=== PATIENT | male | born 1965 | race Caucasian/White ===

== ENCOUNTER 2020-01-21 11:55 | Inpatient (IN) | payer OTHER ==
[~2020-01-21] VITALS: Ht 188 cm; Wt 121.1 kg
--- NOTE | 2020-01-21 12:00 | NUR ---
AAOX3, came to ER c/o ON/OFF non radiating midsternal chest pain x 2 weeks. RR is even and unlabored with NAD noted. Skin is warm and dry. Placed on the monitor and hospital gown. Dr Morley at BS for eval.
--- NOTE | 2020-01-21 12:10 | NUR ---
PT CAME TO THE ED C/O INTERMITTENT AND PRESSURE-LIKE CHEST PAIN X 2 WEEKS 10/06 PS. PT AAOX4, VSS, RESPIRATIONS EVEN AND UNLABORED ON RA W/ NAD NOTED. PT CONNECTED TO THE HANDBAG FRAMER AND POX
--- NOTE | 2020-01-21 12:13 | NUR ---
EKG AT BEDSIDE
--- NOTE | 2020-01-21 12:13 | NUR ---
BLOOD COLLECTED AND SENT TO LAB
[2020-01-21 12:37] LABS: BASOPHILS # (AUTO) 0.1 /CMM (0.0-0.2); BASOPHILS % (AUTO) 0.8 % (0.0-2.0); HEMATOCRIT 46 % (39-51); HEMOGLOBIN 15.5 g/dL (13.5-17.5); LYMPHOCYTES # (AUTO) 2.4 /CMM (0.8-4.8); LYMPHOCYTES % (AUTO) 27.7 % (20.0-44.0); MEAN CORPUSCULAR HGB CONC 33 g/dl (31.0-36.0); MEAN CORPUSCULAR VOLUME 88 fL (80-96); MONOCYTES # (AUTO) 0.8 /CMM (0.1-1.30); MONOCYTES % (AUTO) 9.5 % (2.0-12.0); NEUTROPHILS # (AUTO) 5.3 /CMM (1.8-8.9); PLATELET COUNT (AUTO) 221 /CMM (150-450); RED BLOOD CELL COUNT(AUTO) 5.29 MIL/uL (4.5-6.0); WHITE BLOOD COUNT (AUTO) 8.8 K/uL (4.3-11.0)
[2020-01-21 13:03] LABS: CALCIUM, SERUM 9.3 mg/dL (8.5-10.1); CARBON DIOXIDE 27 mmol/L (21-32); CHLORIDE 100 mmol/L (98-107); GLUCOSE 102 mg/dL (74-106); POTASSIUM 3.8 mmol/L (3.5-5.1); SODIUM SERUM 135 mmol/L (136-145); UREA NITROGEN, BLOOD 20 mg/dL (7-18)
[2020-01-21] MEDS ORDERED: HYDR25TA4 PO (13:05)
[2020-01-21] MEDS ORDERED: LISI-603 PO (13:05)
[2020-01-21 13:16] LABS: ALANINE AMINOTRANSFERASE 39 U/L (12-78); ALBUMIN 3.6 g/dL (3.4-5.0); ALKALINE PHOSPHATASE 94 U/L (46-116); ASPARTATE AMINOTRANSFERASE 23 U/L (15-37); BILIRUBIN,DIRECT 0.1 mg/dL (0.0-0.2); BILIRUBIN,TOTAL 0.4 mg/dL (0.2-1.0); TOTAL PROTEIN, SERUM 7.7 g/dL (6.4-8.2)
--- NOTE | 2020-01-21 13:51 | NUR ---
verbal order for [address] Banda
[2020-01-21] MEDS ORDERED: ACETAMINOPHEN 325 MG TABLET ONE (13:53)
[2020-01-21] MEDS ORDERED: ACETAMINOPHEN 325 MG TABLET PO ONE (14:00)
[2020-01-21] MEDS ORDERED: ACETAMINOPHEN 325 MG TABLET PO PRN (14:00)
[2020-01-21] MEDS ORDERED: ONDANSETRON HCL/PF 4 MG/2 ML VIAL IVP PRN (14:00)
[2020-01-21] MEDS ORDERED: Z GUARD REMEDY 2 OZ OINT TP PRN (14:00)
[2020-01-21] MEDS ORDERED: MAGNESIUM HYDROXIDE 30 ML UDC PO PRN (14:00)
[2020-01-21] MEDS ORDERED: HYDROCODONE/APAP 5/325MG TABLET PO PRN (14:00)
[2020-01-21] MEDS ORDERED: MORPHINE SULFATE INJ 2 MG/ML DISP.SYRIN IV PRN (14:00)
[2020-01-21] MEDS ORDERED: MAG HYDROX/AL HYDROX/SIMETH 30 ML UDC PO PRN (14:00)
--- NOTE | 2020-01-21 14:01 | NUR ---
COVID SWAB COLLECTED AND SENT TO LAB
--- NOTE | 2020-01-21 14:21 | NUR ---
verbal auth from daniel Roman CM to admit patient.
[2020-01-21] MEDS ORDERED: IOHEXOL-350 100 ML VIAL IV ONE (14:46)
[2020-01-21] MEDS ORDERED: IV NS 0.9% 250 ML IV ONE (14:46)
[2020-01-21] MEDS ORDERED: CT SWABBABLE VALVE TRANS SET 1 EA INFUS.SET MC ONE (14:46)
[2020-01-21] MEDS ORDERED: NITROGLYCERIN 0.4 MG/TAB BOTTLE ONE (15:12)
--- NOTE | 2020-01-21 15:28 | NUR ---
Patient tolerated the procedure. VSS
[2020-01-21] MEDS ORDERED: NITROGLYCERIN 0.4 MG/TAB BOTTLE SL ONE (15:30)
[2020-01-21] MEDS ORDERED: METOPROLOL TARTRATE INJ 5 MG/5 ML AMPUL IVP PRN (15:30)
--- NOTE | 2020-01-21 15:30 | NUR ---
report given to Martha SORIANO for amber
--- NOTE | 2020-01-21 15:35 | NUR ---
wheeled patient via gurney accompanied by RN and emt in no distress. RN at bedside to assume care.
--- NOTE | 2020-01-21 15:56 | NUR ---
MS/lens matcher New admission from emergency room via radiology following CTCA for chest pain. Patient fully admitted, orders noted and carried out. No chest pain or discomfort at this time, tele reading normal sinus rhythm. Vital signs recorded, all within normal range, no fevers. Aware of how to operate bed and use call light. All questions and concerns addressed and answered. Will continue to monitor and ensure safety.
[2020-01-21] MEDS: ASPIRIN 325 MG TABLET PO SCH (16:23)
[2020-01-21 16:53] VITALS: BP 139/74
--- NOTE | 2020-01-21 18:32 | NUR ---
MS/RN End note Patient remains in stable condition. Currently being evaluated by Dr House, for angiogram tomorrow. Awaiting orders for consent. Will endorse to awake overnight counselor.
--- NOTE | 2020-01-21 19:48 | NUR ---
FLOOR COVERINGS INSTALLER NOTES RECEIVED PATIENT AWAKE ALERT ORIENTED X4, DENIES ANY PAIN OR DISCOMFORT. IV ACCESS INTACT AND PATENT, SAFETY MEASURES IN PLACE, NO CHEST PAIN, TELE MONITOR READS SINUS RHYTHM. PATIENT IS WATCHING TV PROGRAM AT THIS TIME. ALL NEEDS ANTICIPATED. WILL CONTINUE TO MONITOR ACCORDINGLY.
[2020-01-21 20:00] VITALS: BP 135/88
[2020-01-21] MEDS ORDERED: ENOXAPARIN SODIUM 40 MG/0.4 ML DISP.SYRIN SQ SCH (21:00)
--- NOTE | 2020-01-21 21:21 | NUR ---
RN NOTES HOLD LOVENOX 40MG SQ, NON ADMINISTERED. PATIENT WILL HAVE CARDIAC CATHETERIZATION PROCEDURE IN THE MORNING 01/22/20 AT 0700 PER .
[2020-01-21] MEDS ORDERED: ATORVASTATIN 40 MG TABLET PO SCH (22:00)
[2020-01-22] VITALS (13 sets, daily range): BP systolic 126–142; BP diastolic 77–97
--- NOTE | 2020-01-22 00:10 | NUR ---
RN NOTES NPO STARTED AT THIS TIME PATIENT AWARE, FOR CARDIAC CATHETERIZATION.
[2020-01-22] MEDS ORDERED: IV NS 0.9% 1,000 ML ONE (05:37)
[2020-01-22] MEDS ORDERED: IV NS 0.9% 50 ML IV ONE (05:38)
[2020-01-22] MEDS ORDERED: IODIXANOL 150 ML IV ONE (05:38)
[2020-01-22] MEDS ORDERED: LIDOCAINE HCL/PF 1% 30 ML SDV ONE (05:59)
[2020-01-22] MEDS ORDERED: VERAPAMIL HCL IV 5 MG/2 ML VIAL ONE (06:15)
[2020-01-22] MEDS ORDERED: HEPARIN SODIUM, PORCINE 1,000 UNIT/ML VIAL ONE (06:16)
[2020-01-22] MEDS ORDERED: NITROGLYCERIN ICAR 1,000 MCG/10 ML VIAL ICAR ONE (06:16)
--- NOTE | 2020-01-22 06:25 | NUR ---
RN NOTES PICKED UP BY NURSE BO HANEY FOR CARDIAC CATHETERIZATION, PRE PROCEDURE DONE.
[2020-01-22] MEDS ORDERED: MIDAZOLAM HCL 2 MG/2ML VIAL ONE (06:49)
[2020-01-22] MEDS ORDERED: FENTANYL PF 100MCG/2ML AMPUL ONE (06:49)
--- NOTE | 2020-01-22 07:24 | NUR ---
RN NOTES RECEIVED REPORT FROM BO LAMBERT, PATIENT NOT ON UNIT, PATIENT IS DOWNSTAIRS FOR CARDIAC CATH, WILL CONTINUE TO MONITOR.
--- NOTE | 2020-01-22 07:32 | NUR ---
Placed oxygen saturation probe on right index finger, confirmed patent hemostasis. No Bleeding noted.
[2020-01-22] MEDS ORDERED: IV NS 0.9% 500 ML BAG IV ONE (07:45)
--- NOTE | 2020-01-22 08:32 | NUR ---
3ML OF AIR REMOVED FROM THE TR BAND. No Bleeding noted.
--- NOTE | 2020-01-22 08:47 | NUR ---
4ML OF AIR REMOVED FROM THE TR BAND. No Bleeding noted.
[2020-01-22] MEDS ORDERED: ISOSORBIDE MONONITRATE (30MG) 30 MG TAB.SR.24H PO SCH (09:00)
[2020-01-22] MEDS ORDERED: HYDROCHLOROTHIAZIDE 25 MG TABLET PO SCH (09:00)
[2020-01-22] MEDS ORDERED: LISINOPRIL (20MG) 20 MG TABLET PO SCH (09:00)
--- NOTE | 2020-01-22 09:02 | NUR ---
4ML OF AIR REMOVED FROM THE TR BAND. No bleeding noted.
--- NOTE | 2020-01-22 09:15 | NUR ---
3ML OF AIR REMOVED FROM THE TR BAND. Applied 4x4 gauze, no bleeding noted. Patent hemostasis confirmed. Patient is transported to [place] [id number] via gurney. VSS.
--- NOTE | 2020-01-22 09:40 | NUR ---
RN NOTES PATIENT CAMEBACK FROM COMPENSATION INTERN, NO SIGNS OF DISTRESS NOTED AT THIS TIME. ON RA, TOLERATING WELL. NO SIGNS OF BLEEDING ON THE SITE. SAFETY MEASURES IN PLACE, WILL CONTINUE TO MONITOR.
[2020-01-22] MEDS: ASPIRIN 325 MG TABLET PO SCH (10:14)
[2020-01-22] MEDS ORDERED: Isosorbide Mononitrate (30MG) PO (10:44)
[2020-01-22] MEDS ORDERED: ATOR40TA PO (10:44)
[2020-01-22] MEDS ORDERED: ASPI-1169 PO (10:44)
[2020-01-22 11:22] LABS: BASOPHILS # (AUTO) 0.1 /CMM (0.0-0.2); BASOPHILS % (AUTO) 1.6 % (0.0-2.0); EOSINOPHILS % (AUTO) 2.2 % (0.0-6.0); HEMATOCRIT 45 % (39-51); HEMOGLOBIN 14.9 g/dL (13.5-17.5); LYMPHOCYTES # (AUTO) 1.9 /CMM (0.8-4.8); LYMPHOCYTES % (AUTO) 30.3 % (20.0-44.0); MEAN CORPUSCULAR HGB CONC 33 g/dl (31.0-36.0); MEAN CORPUSCULAR VOLUME 88 fL (80-96); MONOCYTES # (AUTO) 0.4 /CMM (0.1-1.30); NEUTROPHILS # (AUTO) 3.6 /CMM (1.8-8.9); NEUTROPHILS % (AUTO) 58.9 % (43.0-81.0); PLATELET COUNT (AUTO) 204 /CMM (150-450); RED BLOOD CELL COUNT(AUTO) 5.09 MIL/uL (4.5-6.0); WHITE BLOOD COUNT (AUTO) 6.2 K/uL (4.3-11.0)
[2020-01-22 11:31] LABS: MAGNESIUM 1.8 mg/dL (1.8-2.4); POTASSIUM 3.7 mmol/L (3.5-5.1)
[2020-01-22 13:35] LABS: CHOLESTEROL 136 mg/dL (<200); HDL CHOLESTEROL 30 mg/dL (40-60); LDL 91 mg/dL (0-99); TRIGLYCERIDES 121 mg/dL (30-150)
--- NOTE | 2020-01-22 15:30 | NUR ---
PUMP TECHNICIAN NOTES PATIENT DISCHARGE IN STABLE CONDITION. A/O X 4. ABLE TO MAKE NEEDS KNOWN. V/S TAKEN, STABLE AND RECORDED. IV ACCESS REMOVED AND APPLIED PRESSURE DRESSING. NAME ARM BAND REMOVED. ALL BELONGINGS SIGNED AND CHECKED. HEALTH TEACHINGS/DISCHARGE INSTRUCTIONS GIVEN AND VERBALIZED UNDERSTANDING. PATIENT LEFT UNIT VIA WHEELCHAIR WITH NO SIGNS OF DISTRESS. PATIENT ASSISTED TO THE LOBBY. CHARGE NURSE AWARE OF DISCHARGED,
== END 2020-01-22 15:20 | disposition home or self-care (01) | DRG 286 ==
LOC: ER 12:02 → TELE 15:19 → MED 01-22 09:04
PROVIDERS: ADMIT Internal Medicine; ATTEND Internal Medicine
PROC: 4A023N7 Measurement of Cardiac Sampling and Pressure, Left Heart, Percutaneous Approach (ICD-10-PCS; principal; 2020-01-22)
PROC: B211YZZ Fluoroscopy of Multiple Coronary Arteries using Other Contrast (ICD-10-PCS; principal; 2020-01-22)
DX: I25.10 Atherosclerotic heart disease of native coronary artery without angina pectoris (principal); N17.0 Acute kidney failure with tubular necrosis; E87.1 Hypo-osmolality and hyponatremia; I10 Essential (primary) hypertension; E66.9 Obesity, unspecified; E86.1 Hypovolemia; G47.33 Obstructive sleep apnea (adult) (pediatric); Z68.34 Body mass index [BMI] 34.0-34.9, adult
CPT/HCPCS: 36415; 71045-TC; 75574; 80048-TC; 80061-TC; 80076-TC; 83735-TC; 84100-TC; 84484-TC; 85025-TC; 87081-TC; 93307-TC; A4216; C1887; C9803-CS; G0378; G0500; J1644; J1650; J2250; J3010; J3490; J7050; Q9967